=== PATIENT | female | born 1950 | race Caucasian/White ===

== ENCOUNTER → 2016-05-09 | Outpatient (CLI) | payer OTHER ==
[~2016-05-09] VITALS: Ht 172.7 cm; Wt 113.9 kg
[~2016-05-09] MED LIST: ACET-1138 PO; AMT50 PO; ASPI325T45 PO; ATEN-173 PO; CARB1CAP10 PO; CARB200T PO; CHLO10CA7 PO; CHOL200010 PO; CLC100 PO; ESCI1TAB10 PO; LAMO200T38 PO; LANS30CA12 PO; LEVO50TA6 PO; LOSA100T33 PO; MECL1TAB40 PO; MULT-506 PO; OMEG10007 PO; OXYSR10 PO; QUET1TAB37 PO; RALO60TA31 PO; RALOXIFENE PO; RXC5 PO
[2016-05-09 12:46] VITALS: Ht 172.7 cm; Wt 113.9 kg
--- NOTE | 2016-05-09 13:25 | PAT Medication Instructions ---
Service Date May 09, 2016. Current Home Medication List Amitriptyline Hcl (Elavil), 50 MG PO HS Aspirin (Aspirin), 325 MG PO QAM Atenolol (Tenormin), 37.5 MG PO HS Carbamazepine (Tegretol), 200 MG PO AM/HS Carbamazepine Extended Release (Tegretol Xr), 100 MG PO 1600 Chlordiazepoxide (Librium), 25 MG PO HS Cholecalciferol (Vitamin D), 4,000 UNITS PO QAM Docusate Sodium (Docusate Sodium), 100 MG PO BID Escitalopram Oxalate (Lexapro), 20 MG PO QAM Lamotrigine (Lamictal), 200 MG PO BID Lansoprazole (Prevacid), 30 MG PO QAM Lansoprazole (Prevacid), 30 MG PO QAM Levothyroxine Sodium (Levothyroxine Sodium), 1 TAB PO QAM Losartan Potassium & Hydrochlo (Losartan Potassium/Hydroc), 1 TAB PO QAM Meclizine HCl (Meclizine HCl), 1 TAB PO PRN PRN for VERTIGO Multivitamin (Multivitamin), 1 TAB PO QAM Quetiapine Fumarate (Seroquel), 300 MG PO HS [Raloxifine], Unknown Dose PO QAM Medication Instructions For Your Scheduled Surgery - Instructions to be given by surgeon: Aspirin (Aspirin), 325 MG PO QAM - Hold the following medications the morning of surgery: Cholecalciferol (Vitamin D), 4,000 UNITS PO QAM Docusate Sodium (Docusate Sodium), 100 MG PO BID [Raloxifene], Unknown Dose PO QAM Losartan Potassium & Hydrochlo (Losartan Potassium/Hydroc), 1 TAB PO QAM Multivitamin (Multivitamin), 1 TAB PO QAM - Take the following medications the morning of surgery with a sip of water OTHERWISE NOTHING TO EAT OR DRINK AFTER MIDNIGHT: Carbamazepine (Tegretol), 200 MG PO AM/HS Lamotrigine (Lamictal), 200 MG PO BID Escitalopram Oxalate (Lexapro), 20 MG PO QAM Lansoprazole (Prevacid), 30 MG PO QAM Levothyroxine Sodium (Levothyroxine Sodium), 1 TAB PO QAM Meclizine HCl (Meclizine HCl), 1 TAB PO PRN PRN for VERTIGO - Take the following medications as scheduled the night before surgery: Chlordiazepoxide (Librium), 25 MG PO HS Amitriptyline Hcl (Elavil), 50 MG PO HS Atenolol (Tenormin), 37.5 MG PO HS Carbamazepine (Tegretol), 200 MG PO AM/HS Docusate Sodium (Docusate Sodium), 100 MG PO BID Carbamazepine Extended Release (Tegretol Xr), 100 MG PO 1600 Lamotrigine (Lamictal), 200 MG PO BID Meclizine HCl (Meclizine HCl), 1 TAB PO PRN PRN for VERTIGO Quetiapine Fumarate (Seroquel), 300 MG PO HS If you have any questions please call us at [phone] or [phone] or [phone]
--- NOTE | 2016-05-09 14:06 | DIAGNOSTIC IMAGING REPORT ---
CHEST PREADMISSION(PA/LAT) CLINICAL HISTORY: Preoperative chest COMPARISON STUDY: No previous studies for comparison. FINDINGS: The cardiac and mediastinal contours are normal. There is no evidence of focal pulmonary consolidation. There is no evidence of failure. No pleural effusions are visualized.[ There are postsurgical changes involving the left shoulder. IMPRESSION: No active disease in the chest. Electronically signed by: Jerome Jordan M.D. 05/09/2016 2:05 PM Dictated Date/Time: 05/09/2016 2:02 PM
[2016-05-09 14:51] LABS: BASO % 0.6 %; BASO ABS # 0.06 K/uL (0-0.2); COMPLETE YES; EOS % 2.3 %; HEMATOCRIT 38.9 % (37-47); IG% 0.5 %; LYMPH % 21.3 %; LYMPH ABS # 2.02 K/uL (1.2-3.4); MEAN CELL VOLUME 90.9 fL (80-100); MEAN CORPUSCULAR HEMOGLOBIN 30.1 pg (25-34); MEAN CORPUSCULAR HGB CONC 33.2 g/dl (32-36); MEAN PLATELET VOLUME 10.7 fL (7.4-10.4); MONO % 5.3 %; PLATELET COUNT 282 K/uL (130-400); RED BLOOD COUNT 4.28 M/uL (4.2-5.4); WHITE BLOOD COUNT 9.49 K/uL (4.8-10.8)
[2016-05-09 15:01] LABS: BUN/CREATININE RATIO 18.3 (10-20); CALCIUM 8.8 mg/dl (8.5-10.1); CREATININE 0.94 mg/dl (0.60-1.20); POTASSIUM 3.9 mmol/L (3.5-5.1)
[2016-05-09 15:04] LABS: ESTIMATED AVERAGE GLUCOSE 126 mg/dl; HA1C FLAG Normal (Normal)
[2016-05-09 15:26] LABS: PROTHROMBIN TIME (PATIENT) 10.4 SECONDS (9.0-12.0)
--- NOTE | 2016-07-12 09:28 | EDITING REQUIRED CODING QUERY ---
CQSUPPORTING DIAGNOSIS NEEDED A supporting diagnosis is required for the test/procedure performed on this patient in order for us to be reimbursed by the patient's insurance. Please provide a supporting diagnosis for the following test/procedure listed below next to the test name along with your signature. *If there is no additional diagnosis for this patient that would support the following test/procedure please document that below next to the test/procedure. Test(s)/Procedure(s) that require a supporting diagnosis: DOS 05/09/16 GLYCATED HEMOGLOBIN TEST Provider Signature: Date: Thank you Isi Hanna Health Information Management Once completed, please kindly fax back to [phone] For questions please call [phone]
--- NOTE | 2016-07-14 07:03 | CODING QUERY MEDICAL NECESSITY ---
CQSUPPORTING DIAGNOSIS NEEDED A supporting diagnosis is required for the test/procedure performed on this patient in order for us to be reimbursed by the patient's insurance. Please provide a supporting diagnosis for the following test/procedure listed below next to the test name along with your signature. *If there is no additional diagnosis for this patient that would support the following test/procedure please document that below next to the test/procedure. Test(s)/Procedure(s) that require a supporting diagnosis: DOS 05/09/16 GLYCATED HEMOGLOBIN TEST Provider Signature: Date: Thank you Isi Hanna Health Information Management Once completed, please kindly fax back to [phone] For questions please call [phone]
== END | disposition home or self-care (01) ==
LOC: C.LAB 08:00 → EDSTATUS 06-01 09:15
PROVIDERS: ATTEND Orthopaedic Surgery
DX: Z01.810 Encounter for preprocedural cardiovascular examination (principal); Z01.811 Encounter for preprocedural respiratory examination; Z01.812 Encounter for preprocedural laboratory examination; M17.11 Unilateral primary osteoarthritis, right knee

== ENCOUNTER 2017-03-23 06:56 | Inpatient (IN) | payer OTHER ==
[2017-03-15 12:48] VITALS: BMI 26.0
--- NOTE | 2017-03-15 14:10 | DIAGNOSTIC IMAGING REPORT ---
TWO VIEW CHEST CLINICAL HISTORY: Preoperative examination. FINDINGS: PA and lateral chest radiographs are compared to study dated 05/09/2016. The cardiomediastinal silhouette is unremarkable. The lungs and pleural spaces are clear. There is no pneumothorax. The skeletal structures are osteopenic. The bony thorax appears intact. A left shoulder arthroplasty is in place. IMPRESSION: No active disease in the chest. Electronically signed by: Malik Brito M.D. 03/15/2017 2:08 PM Dictated Date/Time: 03/15/2017 2:08 PM
[2017-03-15 15:08] LABS: PTT PATIENT 24.5 SECONDS (21.0-31.0)
--- NOTE | 2017-03-15 15:18 | PAT Medication Instructions ---
Service Date Mar 15, 2017. Current Home Medication List Amitriptyline Hcl (Elavil), 50 MG PO HS Aspirin (Aspirin), 325 MG PO QAM Atenolol (Tenormin), 25 MG PO HS Biotin (Biotin), 1 TAB PO QAM Cholecalciferol (Vitamin D), 4,000 UNITS PO QAM Clotrimazole W/ Betamethasone (Lotrisone), 1 APPLN TOP UD Dicyclomine Hcl (Bentyl), 10 MG PO UD PRN for prn Escitalopram Oxalate (Lexapro), 20 MG PO QAM Hctz/Losartan (Hyzaar 12.5MG/100MG), 1 TAB PO QAM Lamotrigine (Lamictal), 200 MG PO BID Lansoprazole (Prevacid), 30 MG PO QAM Levothyroxine Sodium (Levothyroxine Sodium), 1 TAB PO QAM Liraglutide (Victoza), Unknown Dose SQ QAM Meclizine HCl (Meclizine HCl), 1 TAB PO PRN PRN for VERTIGO Mometasone Furoate (Elocon), 1 DOSE TOP UD PRN for prn Multivitamin (Multivitamin), 1 TAB PO QAM Quetiapine Fumarate (Seroquel), 300 MG PO HS Raloxifene (Evista), 1 TAB PO QAM Medication Instructions For Your Scheduled Surgery - Check with surgeon and prescribing physician for instructions: Aspirin (Aspirin), 325 MG PO QAM - Check with surgeon for instructions: Raloxifene (Evista), 1 TAB PO QAM - Hold the following medications 24 hours prior to surgery: Mometasone Furoate (Elocon), 1 DOSE TOP UD PRN for prn Clotrimazole W/ Betamethasone (Lotrisone), 1 APPLN TOP UD - Hold the following medications the morning of surgery: Biotin (Biotin), 1 TAB PO QAM Cholecalciferol (Vitamin D), 4,000 UNITS PO QAM Dicyclomine Hcl (Bentyl), 10 MG PO UD PRN for prn Hctz/Losartan (Hyzaar 12.5MG/100MG), 1 TAB PO QAM Multivitamin (Multivitamin), 1 TAB PO QAM - Take the following medications the morning of surgery with a sip of water: Meclizine HCl (Meclizine HCl), 1 TAB PO PRN PRN for VERTIGO (if needed) Levothyroxine Sodium (Levothyroxine Sodium), 1 TAB PO QAM Lansoprazole (Prevacid), 30 MG PO QAM Lamotrigine (Lamictal), 200 MG PO BID Escitalopram Oxalate (Lexapro), 20 MG PO QAM Liraglutide (Victoza), Unknown Dose SQ QAM - Take the following medications as scheduled the night before surgery: Quetiapine Fumarate (Seroquel), 300 MG PO HS Meclizine HCl (Meclizine HCl), 1 TAB PO PRN PRN for VERTIGO (if needed) Lamotrigine (Lamictal), 200 MG PO BID Dicyclomine Hcl (Bentyl), 10 MG PO UD PRN for prn (if needed) Atenolol (Tenormin), 25 MG PO HS Amitriptyline Hcl (Elavil), 50 MG PO HS If you have any questions please call us at [phone] or [phone] or [phone]
[2017-03-15 15:29] LABS: HEMOGLOBIN A1C 5.3 % (4.5-5.6)
--- NOTE | 2017-03-16 11:29 | HISTORY & PHYSICAL EXAMINATION ---
DATE OF ADMISSION: 03/23/2017 CHIEF COMPLAINT: Right knee pain. HISTORY OF PRESENT ILLNESS: Iona is a 66-year-old female with a 5-year history of right knee pain. The patient rates her pain a 5/10. She has pain with her daily activities. She has limited standing and walking tolerance. Pain is worse with weightbearing. The patient has had bracing and home exercise program. She has failed conservative treatment and is scheduled for right knee replacement. PAST MEDICAL HISTORY: Hypertension, anxiety, and thyroid disease. She denies heart disease or DVT. PAST SURGICAL HISTORY: Tonsillectomy, cholecystectomy and D&C x3. SOCIAL HISTORY: The patient denies alcohol or tobacco use. She lives in an apartment building with an elevator; she lives alone and is retired. FAMILY HISTORY: Adopted. MEDICATIONS: Seroquel 300 mg daily, amitriptyline 50 mg daily, Evista 60 mg daily, Synthroid 50 mcg daily, Prevacid 30 mg daily, losartan 100 mg/hydrochlorothiazide 12.5 mg 1 daily, aspirin 325 mg daily, Tenormin 25 mg daily, lamotrigine 200 mg b.i.d., 20 mg daily, multivitamin, vitamin D and biotin. ALLERGIES: SULFA CAUSES SWELLING AND SHORTNESS OF BREATH. REVIEW OF SYSTEMS: See HPI. Ten other systems reviewed, all negative. PHYSICAL EXAMINATION: VITAL SIGNS: Height 5 feet 8 inches, weight 170 pounds, BMI 26. GENERAL: This is a well-developed, well-nourished female who is alert and oriented x3. Mood and affect are appropriate. HEENT: Normocephalic, atraumatic. Mucous membranes are moist and intact. NECK: Supple without lymphadenopathy. HEART: Regular rate and rhythm without murmurs, rubs or gallops. LUNGS: Clear to auscultation without wheezes or rhonchi. ABDOMEN: Soft and nontender. Bowel sounds are equal and active. EXTREMITIES: No ecchymosis, redness or warmth. She has a +1 effusion. She has valgus deformity. Range of motion is from 5-110 degrees with +1 laxity. She is neurovascularly intact with +5/5 strength. X-RAY EXAMINATION: AP and lateral views show joint space narrowing and osteophyte formation. IMPRESSION: Degenerative joint disease, right knee. PLAN: The patient will be admitted for a right total knee arthroplasty. We will plan on aspirin for DVT prophylaxis. The patient will have [facility] for home PT upon discharge. DAISY
[2017-03-23] VITALS (11 sets, daily range): BP systolic 104–153; BP diastolic 64–88; PULSE 78–86; TEMP 36.3–37.1; O2SAT 94–100; Ht 172.7 cm; Wt 77.3 kg
[~2017-03-23] VITALS: Ht 172.7 cm; Wt 77.3 kg
[~2017-03-23 06:56] MED LIST changes: -ACET-1138 PO; +ACETAMINOPHEN 500 MG TAB PO SCH; +BIOT1TAB5 PO; +BUPIVACAINE 0.5 % 5 MG/1 ML PF 10ML VIAL ONE; -CARB1CAP10 PO; -CARB200T PO; +CEFAZOLIN 2000MG IV PUSH 15 ML IV SCH; -CHLO10CA7 PO; -CLC100 PO; +CLOTCRE TOP; +DEXAMETHASONE 4 MG TAB PO SCH; +DICY10CA55 PO; +FAMOTIDINE 20 MG TAB PO SCH; +FENTANYL CITRATE INJ 50 MCG/1 ML 2 ML VIAL ONE; +GABAPENTIN 300 MG CAP PO SCH; +LACTATED RINGER'S 1000ML 1,000 ML IV SCH; +LACTATED RINGER'S 1000ML 500 ML IV SCH; +LAMO200T35 PO; -LAMO200T38 PO; +LIRA18IN SQ; +METOCLOPRAMIDE HCL 10 MG TAB PO SCH; +MIDAZOLAM HCL 1 MG/ML 2ML VIAL ONE; -OMEG10007 PO; -OXYSR10 PO; +PROPOFOL IV EMULSION 10 MG/ML 20 ML VIAL IV ONE; -RALOXIFENE PO; +ROPIVACAINE 5MG/ML 30 ML 150 MG, BUPIVACAINE 0.5% MPF INJ 30 ML, EpINEphrine HCL INJ 0.... INFIL SCH; -RXC5 PO; +[UNRECOGNIZED DRUG - CODE] TOP
--- NOTE | 2017-03-23 07:13 | History & Physical Bridge Note ---
H&P Re-Evaluation Bridge Note: I have examined the patient, reviewed the History & Physical and in the interval since the performance of the History & Physical I have noted the following changes of clinical significance: No changes noted
[2017-03-23] MEDS ORDERED: EpHEDrine SULFATE INJ 50 MG/ML AMP IV PRN (07:45)
[2017-03-23] MEDS ORDERED: ONDANSETRON INJ 2 MG/ML 2 ML VIAL IV PRN ×2 (07:45→10:45)
[2017-03-23] MEDS ORDERED: FENTANYL CITRATE INJ 50 MCG/1 ML 2 ML VIAL IV PRN (07:45)
[2017-03-23] MEDS ORDERED: ATROPINE SULFATE 0.1 MG/ML 5ML SYR IV PRN (07:45)
[2017-03-23] MEDS ORDERED: CHLO25CA10 PO (07:48)
[2017-03-23] MEDS: TRANEXAMIC ACID INJ 1,000 MG in SYRINGE 0 ML IV SCH ×2 (08:10→12:18)
[2017-03-23] MEDS ORDERED: POVIDONE-IODINE OP SOLN 30 ML BTL ONE (08:12)
[2017-03-23] MEDS ORDERED: BACITRACIN 50000 UNIT VIAL ONE (08:12)
[2017-03-23] MEDS ORDERED: ORTHO JOINT ANESTHETIC ONE (08:12)
[2017-03-23] MEDS ORDERED: MIDAZOLAM HCL 1 MG/ML 2ML VIAL ONE (08:55)
--- NOTE | 2017-03-23 09:58 | [facility] Post Operative Brief Note ---
Immediate Operative Summary Operative Date Mar 23, 2017. Pre-Operative Diagnosis Degenerative Joint Disease Right Knee Post-Operative Diagnosis djd rt knee Procedure(s) Performed Right total knee arthroplasty Surgeon Dr. Blackman Radio Communications Mechanician Surgeon(s) Irina Hall PA-C Estimated Blood Loss 5cc Findings Consistent with Post-Op Diagnosis Specimens A) Right knee- bone & tissue Anesthesia Type MAC Spinal Regional Complication(s) none Disposition Disposition: Recovery Room / PACU
--- NOTE | 2017-03-23 10:00 | [facility] Operative Report ---
Operative Report Operative Date Mar 23, 2017. Pre-Operative Diagnosis Degenerative Joint Disease Right Knee Post-Operative Diagnosis djd rt knee Procedure(s) Performed Right total knee arthroplasty Surgeon Dr. 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 Specimens A) Right knee- bone & tissue Anesthesia Type MAC Spinal Regional Complication(s) none Disposition Recovery Room / PACU Indications Patient presents with severe end-stage tricompartmental joint disease nonresponse to conservative management including physical therapy anti- inflammatories relative rest proper x-rays revealed evidence of marginal osteophytes subchondral sclerosis cystic changes DJD [id number] the bone changes Description of Procedure After proper prepping and draping of the Right lower extremity anterior midline incision was made over the region of the extensor extensor mechanism after meticulous hemostasis was obtained and maintained in subcutaneous tissues a medial parapatellar incision was made The patella was subluxed lateralward the medial lateral gutter were cleaned from any hypertrophic synovitis and scar tissue of the distal femoral block was placed and the distal femoral osteotomy cut was made subsequently the chamfers anterior and posterior osteotomy cuts were made utilizing the 4-in-1 block the tibia was subsequently subluxed anteriorward medial and ateral meniscal remnants were excised in their entirety remnants of the anterior and posterior cruciate ligaments were excised in their entirety excellent exposure of the proximal tibia was obtained the tibial osteotomy guide was placed on the proximal tibial osteotomy cut was made once again the knee was irrigated with copious amounts of sterile saline solution the patella was subsequently everted lateralward thickened scar tissue around the patella was removed the patella was subsequently cut utilizing a freehand technique and was drilled prepared for final preparation and placement of patella socially flexion-extension gaps were checked and the equal and symmetric trials were placed to the appropriate femoral and tibial trials with poly-spacer being placed for equal flexion and extension gaps and full range of motion including extension to 0 and flexion to 140 the trial components after having been taken to recovery range of motion was subsequently removed meticulous hemostasis was obtained and maintained subsequently a knee block injection of joint cocktail including ropivacaine 0.5% 150 mg. Bupivacaine 0.5 % epinephrine 1-200,030 mL's toradol 30 mg dexamethasone 4 mg ketamine 10 mg clonidine 100 micrograms normal saline solution 30 mg was infiltrated into the soft tissues of the posterior knee medial lateral gutters and periosteal synovium special attention was paid to protect neurovascular structures at all times subsequently trial components having been removed the knee was irrigated with sterile saline solution. debris was removed the proximal tibia was subsequently prepared and was made ready for the placement of the tibial component tibial component was also cemented and tamped into position the femoral component was subsequently placed and cemented in the position the patellar component was subsequently cemented in position because hemostasis once again obtained and maintained wound having been thoroughly irrigated with debridement and debridement lavage was performed as well as a medial parapatellar incision closed with #1 Vicryl in interrupted fashion subcutaneous was closed with #2 Vicryl skin was closed with skin clips. PA-C was necessary for prepping and drapping as well as wound closure of deep fascia Sub cutaneous tissue and skin and was necessary for the case. A sterile compressive dressing was placed patient was taken to recovery in stable condition of report dictated by Yehuda I attest to the content of the Intraoperative Record and any orders documented therein. Any exceptions are noted below. I attest to the content of the Intraoperative Record and any orders documented therein. Any exceptions are noted below.
[2017-03-23] MEDS ORDERED: BISACODYL 10 MG SUPP PR PRN (10:45)
[2017-03-23] MEDS ORDERED: ZOLPIDEM TARTRATE 5 MG TAB PO PRN (10:45)
[2017-03-23] MEDS ORDERED: DICYCLOMINE HCL 10 MG CAP PO PRN (10:45)
[2017-03-23] MEDS ORDERED: TRAMADOL HCL 50 MG TAB PO PRN (10:45)
[2017-03-23] MEDS ORDERED: MoRPHine SULFATE 2 MG/ML CARP IV PRN (10:45)
[2017-03-23] MEDS ORDERED: ALUMINUM/MAGNESIUM/SIMETH (MAALOX MAX) 30 ML UDC PO PRN (10:45)
[2017-03-23] MEDS ORDERED: SOD PHOSPHATE/SOD BIPHOSPHATE ENEMA 132 ML BTL PR PRN (10:45)
[2017-03-23] MEDS ORDERED: DiphenhydrAMINE HCL 50 MG/ML VIAL IV PRN (10:45)
[2017-03-23] MEDS ORDERED: MAGNESIUM HYDROXIDE SUSP 30 ML UDC PO PRN (10:45)
--- NOTE | 2017-03-23 10:53 | DIAGNOSTIC IMAGING REPORT ---
R KNEE 1 OR 2 VIEWS ROUTINE CLINICAL HISTORY: AP/LATERAL IN PACU RIGHT KNEE COMPARISON: None. DISCUSSION: Anatomic alignment status post total right knee arthroplasty. Good contact between prosthetic and underlying bone. Expected soft tissue postoperative change. IMPRESSION: Anatomic alignment status post total right knee arthroplasty The above report was generated using voice recognition software. It may contain grammatical, syntax or spelling errors. Electronically signed by: Tolu Claire M.D. 03/23/2017 10:52 AM Dictated Date/Time: 03/23/2017 10:51 AM
--- NOTE | 2017-03-23 11:50 | Anesthesiology Progress Note ---
Anesthesia Post Op Note Date & Time Mar 23, 2017 at 11:50 Vital Signs Pain Intensity: 0 Vital Signs Past 12 Hours Date Time Temp Pulse Resp B/P (MAP) Pulse Ox O2 Delivery O2 Flow Rate FiO2 03/23/17 11:44 77 19 100 03/23/17 11:44 77 19 03/23/17 11:40 113/75 03/23/17 11:39 77 13 100 03/23/17 11:39 78 13 03/23/17 11:35 111/72 03/23/17 11:34 78 16 100 03/23/17 11:34 78 16 03/23/17 11:31 36.8 03/23/17 11:30 114/74 03/23/17 11:29 78 16 03/23/17 11:29 78 16 100 03/23/17 11:25 116/75 03/23/17 11:24 78 16 100 03/23/17 11:24 78 16 03/23/17 11:23 78 16 100 03/23/17 11:23 78 16 03/23/17 11:20 116/74 03/23/17 11:18 79 16 03/23/17 11:18 79 16 100 03/23/17 11:15 120/74 03/23/17 11:13 79 20 03/23/17 11:13 79 20 100 03/23/17 11:12 79 14 03/23/17 11:12 80 14 100 03/23/17 11:10 112/70 03/23/17 11:07 79 14 100 03/23/17 11:07 79 14 03/23/17 11:06 116/74 03/23/17 11:02 80 13 03/23/17 11:02 80 13 100 03/23/17 11:01 80 16 100 03/23/17 11:01 80 16 03/23/17 11:00 125/72 03/23/17 10:56 80 16 99 03/23/17 10:56 80 16 03/23/17 10:55 117/72 03/23/17 10:54 82 16 03/23/17 10:54 82 16 95 03/23/17 10:50 121/71 03/23/17 10:49 81 20 95 03/23/17 10:49 81 20 03/23/17 10:45 120/73 03/23/17 10:44 86 22 98 03/23/17 10:44 87 22 03/23/17 10:41 111/77 03/23/17 10:39 85 23 03/23/17 10:39 85 23 100 03/23/17 10:36 118/57 03/23/17 10:35 121/70 03/23/17 10:34 20 03/23/17 10:34 87 20 03/23/17 10:34 36.3 87 15 121/70 100 Nasal Cannula 2 03/23/17 07:52 94 Room Air 03/23/17 07:42 36.6 81 16 116/64 Notes Mental Status: alert / awake / arousable, participated in evaluation Pt Amnestic to Procedure: Yes Nausea / Vomiting: adequately controlled Pain: adequately controlled Airway Patency, RR, SpO2: stable & adequate BP & HR: stable & adequate Hydration State: stable & adequate Neuraxial Anesthesia: was administered, sensory block is resolving Anesthetic Complications: no major complications apparent
[2017-03-23] MEDS: SODIUM CHLORIDE 0.9% 1000ML 1,000 ML IV SCH (13:36)
[2017-03-23] MEDS: KETOROLAC TROMETHAMINE 30 MG/ML VIAL IV. SCH ×2 (13:36→20:20)
[2017-03-23] MEDS: CEFAZOLIN IV 2,000 MG in SYRINGE 0 ML IV SCH (16:25)
[2017-03-23] MEDS: ACETAMINOPHEN 500 MG TAB PO SCH ×2 (16:25→23:33)
[2017-03-23] MEDS: ASPIRIN 81 MG ECTAB PO SCH (20:21)
[2017-03-23] MEDS: AMITRIPTYLINE HCL 50 MG TAB PO SCH (20:21)
[2017-03-23] MEDS: SENNA 8.6 MG TAB PO SCH (20:22)
[2017-03-23] MEDS: QUETIAPINE FUMARATE 300 MG TAB PO SCH (20:25)
[2017-03-24] VITALS (7 sets, daily range): BP systolic 105–152; BP diastolic 66–88; PULSE 71–81; TEMP 36.7–37.1; O2SAT 92–100
[2017-03-24] MEDS: SODIUM CHLORIDE 0.9% 1000ML 1,000 ML IV SCH ×2 (00:25→09:33)
[2017-03-24] MEDS: CEFAZOLIN IV 2,000 MG in SYRINGE 0 ML IV SCH (01:28)
[2017-03-24] MEDS: KETOROLAC TROMETHAMINE 30 MG/ML VIAL IV. SCH ×2 (01:28→07:29)
[2017-03-24] MEDS: LEVOTHYROXINE 50 MCG TAB PO SCH (05:44)
[2017-03-24] MEDS: ACETAMINOPHEN 500 MG TAB PO SCH ×2 (07:28→16:09)
[2017-03-24] MEDS ORDERED: DEXAMETHASONE 4 MG TAB PO ONE (07:30)
[2017-03-24 08:01] LABS: HEMATOCRIT 30.6 % (37-47); HEMOGLOBIN 10.4 g/dL (12.0-16.0); MEAN CELL VOLUME 94.2 fL (80-100); MEAN PLATELET VOLUME 10.8 fL (7.4-10.4); PLATELET COUNT 299 K/uL (130-400); RED CELL DISTRIBUTION WIDTH CV 14.2 % (11.5-14.5); RED CELL DISTRIBUTION WIDTH SD 48.9 fL (36.4-46.3); WHITE BLOOD COUNT 19.34 K/uL (4.8-10.8)
--- NOTE | 2017-03-24 08:14 | Orthopedic Progress Note ---
Orthopedic Progress Note Date of Service Mar 24, 2017. Subjective Post OP Day: 1 Reports: feeling well, Denies: chest pain, SOB, nausea / vomiting, light headedness, calf pain Objective calves soft nontender, N/V intact, capillary refill less than 2 sec., dressing C /D/I, A&O x3, hemovac drainage (290/125cc per shift) Date Time Temp Pulse Resp B/P (MAP) Pulse Ox O2 Delivery O2 Flow Rate FiO2 03/24/17 07:30 Room Air 03/24/17 03:26 37.0 74 15 131/88 (102) 98 Room Air 03/23/17 23:30 Room Air 03/23/17 22:59 36.4 81 15 125/77 (93) 95 Room Air 03/23/17 20:45 37.1 85 18 153/73 (99) 100 Room Air 03/23/17 20:27 85 134/88 (103) 03/23/17 15:08 100 Room Air 03/23/17 14:57 36.5 86 18 104/66 (79) 94 Nasal Cannula 2.0 03/23/17 14:00 83 16 121/74 (90) 100 Nasal Cannula 2.0 03/23/17 13:00 81 18 118/74 (89) 94 Nasal Cannula 2.0 03/23/17 12:32 81 16 116/74 (88) 99 2.0 03/23/17 12:00 Nasal Cannula 2.0 03/23/17 12:00 36.3 78 18 118/76 (90) 96 Nasal Cannula 2.0 03/23/17 12:00 Nasal Cannula 2.0 03/23/17 11:44 77 19 100 03/23/17 11:44 77 19 03/23/17 11:40 113/75 03/23/17 11:39 77 13 100 03/23/17 11:39 78 13 03/23/17 11:35 111/72 03/23/17 11:34 78 16 100 03/23/17 11:34 78 16 03/23/17 11:31 36.8 03/23/17 11:30 114/74 03/23/17 11:29 78 16 03/23/17 11:29 78 16 100 03/23/17 11:25 116/75 03/23/17 11:24 78 16 100 2/8/18 11:24 78 16 03/23/17 11:23 78 16 100 03/23/17 11:23 78 16 03/23/17 11:20 116/74 18 11:18 79 16 218 11:18 79 16 100 18 11:15 120/74 18 11:13 79 20 03/23/17 11:13 79 20 100 03/23/17 11:12 79 14 03/23/17 11:12 80 14 100 03/23/17 11:10 112/70 03/23/17 11:07 79 14 100 03/23/17 11:07 79 14 03/23/17 11:06 116/74 03/23/17 11:02 80 13 03/23/17 11:02 80 13 100 03/23/17 11:01 80 16 100 03/23/17 11:01 80 16 03/23/17 11:00 125/72 03/23/17 10:56 80 16 99 03/23/17 10:56 80 16 03/23/17 10:55 117/72 03/23/17 10:54 82 16 03/23/17 10:54 82 16 95 03/23/17 10:50 121/71 03/23/17 10:49 81 20 95 03/23/17 10:49 81 20 03/23/17 10:45 120/73 03/23/17 10:44 86 22 98 03/23/17 10:44 87 22 03/23/17 10:41 111/77 03/23/17 10:39 85 23 03/23/17 10:39 85 23 100 03/23/17 10:36 118/57 18 10:35 121/70 18 10:34 20 18 10:34 87 20 03/23/17 10:34 36.3 87 15 121/70 100 Nasal Cannula 2 Laboratory Results 24 Hours: Test 03/24/17 07:33 Hematocrit 30.6 % Hemoglobin 10.4 g/dL Assessment & Plan Assessment: POD#1 SP RIGHT TKA Plan: PT/OT DVT PROPH- ASA 325MG BID PAIN MANAGEMENT DC PLANING- DC HOME TODAY WITH HOME PT. DC DRESSING/DRAIN PRIOR TO DC
[2017-03-24] MEDS ORDERED: ASPEC81 PO (08:17)
[2017-03-24] MEDS ORDERED: ONDA8TAB6 PO (08:17)
[2017-03-24] MEDS ORDERED: SENN-61 PO (08:17)
[2017-03-24] MEDS ORDERED: RXC5 PO (08:17)
[2017-03-24] MEDS ORDERED: ACET-24 PO (08:17)
--- NOTE | 2017-03-24 08:18 | Discharge Instructions ---
Discharge Instructions Date of Service Mar 24, 2017. Admission Reason for Admission: Right Knee Osteoarthritis, Discharge Discharge Diagnosis / Problem: SP RIGHT TKA Discharge Goals Goal(s): Decrease discomfort, Improve function, Increase independence Activity Recommendations Activity Limitations: per Instructions/Follow-up section . Instructions / Follow-Up Instructions / Follow-Up ACTIVITY RECOMMENDATIONS: SELF CARE INSTRUCTIONS AFTER TOTAL KNEE REPLACEMENT A. You may need to continue a physical therapy program after discharge from the hospital. There are several options available to you. Your doctor will assist you in selecting the best one for you. 1. An out-patient facility 2 to 3 times a week for therapy or home therapy. 2. Continue working on all exercises taught to you in the hospital. Your goals should be to increase bending of your knee to 90 degrees and beyond and to fully straighten your knee. B. You may progress at your own pace from walking with a walker or crutches to a cane; then to no assistive devices. C. Make walking a part of your daily routine. Be up as much as comfortable with rest periods throughout the day. Rest with leg elevation is very important. Use the ice wrap frequently for the first 3-4 weeks. D. There are no restrictions on activities. You may ride in a car, shop, participate in senior computer specialist and all social activities. E. Wear the long elastic stockings (JORGE hose) 20 hours a day for 2 weeks after surgery. They can be removed several times a day for laundering and for a bath. F. You may shower, no tub baths until cleared by your doctor. SPECIAL CARE INSTRUCTIONS: VERY IMPORTANT TO READ AND REVIEW A. There are a few signs you need to watch for after you are home. Call [facility] if you notice any of the followin. Increased severe knee pain. Some pain is expected especially when you exercise. 2. Increased swelling in your leg or knee; pain or swelling of the calf muscle in either lower leg. 3. Any fluid drainage from the incision. 4. Shortness of breath or chest pain. B. Please call [facility] at if you have any concerns or questions about your operation or recovery. The doctor or his nurse will return your call promptly. C. You must take antibiotics before dental work, bladder, bowel or other surgery. Your doctor will provide you with a permanent care to carry describing this precaution. IMPORTANT: * REMEMBER TO TAKE ASPIRIN, 81 MG, TWICE DAILY FOR 4 WEEKS UNLESS OTHERWISE DIRECTED. THIS IS YOUR BLOOD THINNER. * HIGH RISK PATIENTS MAY BE PRESCRIBED A STRONGER BLOOD THINNER. THIS WILL BE PROVIDED AT DISCHARGE. * CALL IF INCREASED PAIN, REDNESS, DRAINAGE OR FEVER GREATER THAT 101. * WEAR JORGE HOSE 20 HOURS PER DAY FOR 2 WEEKS. DERMABOND Prineo- This is a mesh tape dressing that is covered with glue. It should remain in place until the incision is properly healed, usually 10-14 days. This dressing is designed to naturally slough off. You may trim the excess mesh tape as it peels off. Incision may be briefly wet in a shower. Dry immediately by blotting with a clean, dry towel. Do not bath or swim until instructed by your doctor. Do not scratch, rub, or pick at the dressing. Do not apply any topical ointments or lotions until dressing is completely removed and/or instructed by your doctor. There may be a small piece of suture material at one end of your incision. Do not pull or trim this. If it is bothersome or catching on clothing, you may cover it with a band-aid. FOLLOW UP VISIT: If appointment is not already scheduled: Please call [facility] to make a follow-up appointment for 2 weeks after your surgery at . Current Hospital Diet Patient's current hospital diet: Regular Diet Discharge Diet Recommended Diet: Regular Diet Procedures Procedures Performed: Right total knee arthroplasty Pending Studies Studies pending at discharge: no Laboratory Results Hemoglobin A1c Test 03/15/17 13:38 Range/Units Estimated Average Glucose 105 mg/dl Hemoglobin A1c 5.3 4.5-5.6 % Medical Emergencies . Who to Call and When: Medical Emergencies: If at any time you feel your situation is an emergency, please call 911 immediately. . Non-Emergent Contact Non-Emergency issues call your: Surgeon . "Provider Documentation" section prepared by Luz Maria Hall. . VTE Core Measure Inpt VTE Proph given/why not?: Other Anticoagulation, T.E.D. Stockings, SCD's [place] Drug Monitoring Program Search Results: patient reviewed within database, no issues identified
[2017-03-24 08:20] LABS: CALCIUM 8.3 mg/dl (8.5-10.1); CREATININE 1.15 mg/dl (0.60-1.20); POTASSIUM 3.9 mmol/L (3.5-5.1)
[2017-03-24] MEDS: ASPIRIN 81 MG ECTAB PO SCH ×2 (08:46→20:40)
[2017-03-24] MEDS: ESCITALOPRAM OXALATE 20 MG TAB PO SCH (08:46)
[2017-03-24] MEDS: HYDROCHLOROTHIAZIDE 25 MG TAB PO SCH (08:47)
[2017-03-24] MEDS: MULTIVITAMIN TAB PO SCH (08:48)
[2017-03-24] MEDS: LOSARTAN POTASSIUM 50 MG TAB PO SCH (08:48)
[2017-03-24] MEDS: PANTOprazole SOD 40 MG TAB PO SCH (08:49)
[2017-03-24] MEDS: CHLORDIAZEPOXIDE 25 MG CAP PO SCH (08:53)
[2017-03-24] MEDS ORDERED: MULTIVITAMIN TAB PO SCH (09:00)
[2017-03-24] MEDS: RALOXIFENE 60 MG TAB PO SCH (09:35)
--- NOTE | 2017-03-24 11:11 | Anesthesiology Progress Note ---
Anesthesia Post Op Note Date & Time Mar 24, 2017 at 11:11 Vital Signs Pain Intensity: 0.0 Vital Signs Past 12 Hours Date Time Temp Pulse Resp B/P (MAP) Pulse Ox O2 Delivery O2 Flow Rate FiO2 03/24/17 10:05 37.1 81 18 92 Room Air 03/24/17 08:41 92 Room Air 03/24/17 08:12 37.1 81 18 130/80 (97) 92 Room Air 03/24/17 07:30 Room Air 03/24/17 03:26 37.0 74 15 131/88 (102) 98 Room Air 03/23/17 23:30 Room Air Notes Mental Status: alert / awake / arousable, participated in evaluation Pt Amnestic to Procedure: Yes Nausea / Vomiting: adequately controlled Pain: adequately controlled Airway Patency, RR, SpO2: stable & adequate BP & HR: stable & adequate Hydration State: stable & adequate Anesthetic Complications: no major complications apparent
[2017-03-24] MEDS: QUETIAPINE FUMARATE 300 MG TAB PO SCH (20:39)
[2017-03-24] MEDS: SENNA 8.6 MG TAB PO SCH (20:39)
[2017-03-24] MEDS: AMITRIPTYLINE HCL 50 MG TAB PO SCH (20:40)
[2017-03-25] MEDS: ACETAMINOPHEN 500 MG TAB PO SCH ×2 (00:50→08:36)
[2017-03-25] MEDS: LEVOTHYROXINE 50 MCG TAB PO SCH (04:23)
[2017-03-25] MEDS: OXYCODONE HCL IR 5 MG TAB (IMMEDIATE RELEASE) PO PRN ×2 (04:24→11:31)
[2017-03-25 07:30] VITALS: BP 99/62; PULSE 74; TEMP 36.7; O2SAT 100
[2017-03-25] MEDS: PANTOprazole SOD 40 MG TAB PO SCH (08:37)
[2017-03-25] MEDS: HYDROCHLOROTHIAZIDE 25 MG TAB PO SCH (09:00)
[2017-03-25] MEDS: LOSARTAN POTASSIUM 50 MG TAB PO SCH (09:00)
[2017-03-25] MEDS: CHLORDIAZEPOXIDE 25 MG CAP PO SCH (09:05)
[2017-03-25] MEDS: ESCITALOPRAM OXALATE 20 MG TAB PO SCH (09:06)
[2017-03-25] MEDS: MULTIVITAMIN TAB PO SCH (09:06)
[2017-03-25] MEDS: ASPIRIN 81 MG ECTAB PO SCH (09:06)
[2017-03-25] MEDS: RALOXIFENE 60 MG TAB PO SCH (09:07)
--- NOTE | 2017-03-25 10:37 | Orthopedic Progress Note ---
Orthopedic Progress Note Date of Service Mar 25, 2017. Subjective Post OP Day: 2 Reports: feeling well, pain controlled w PO medications, Denies: complaints, chest pain, SOB, nausea / vomiting, light headedness, calf pain Objective calves soft nontender, N/V intact, capillary refill less than 2 sec., dressing C /D/I, A&O x3, toes mobile mesh dressing in tact Date Time Temp Pulse Resp B/P (MAP) Pulse Ox O2 Delivery O2 Flow Rate FiO2 03/25/17 07:30 36.7 74 19 99/62 (74) 100 Room Air 03/25/17 01:05 Room Air 03/24/17 23:40 36.8 76 16 105/66 (79) 97 Room Air 03/24/17 16:00 Room Air 03/24/17 15:41 37.0 71 16 120/79 (93) 100 Room Air 03/24/17 12:31 36.7 73 16 152/88 (109) 100 Room Air Assessment & Plan Assessment: POD#2 SP RIGHT TKA Plan: PT/OT DVT PROPH- ASA 325MG BID PAIN MANAGEMENT DC PLANING- DC HOME TODAY WITH HOME PT. Attending Addendum: I have seen and examined the patient, and agree with BLAIR Tellez's assessment and plan. I am covering Orthopedic Surgery call for Dr. Shay, who is unavailable. Chalo Eller MD
== END 2017-03-25 12:13 | disposition home or self-care (01) | DRG 470 ==
LOC: C.ACU 06:56 → C.MSN 07:00 → ENRESERV 10:55
PROVIDERS: ADMIT Orthopaedic Surgery; ATTEND Orthopaedic Surgery
PROC: 0SRC0J9 Replacement of Right Knee Joint with Synthetic Substitute, Cemented, Open Approach (ICD-10-PCS; principal; 2017-03-23 09:15)
DX: M17.11 Unilateral primary osteoarthritis, right knee (principal); F41.9 Anxiety disorder, unspecified; I10 Essential (primary) hypertension; Z88.2 Allergy status to sulfonamides